=== PATIENT | female | born 1960 | race Caucasian/White ===

== ENCOUNTER 2024-12-14 03:53 | Emergency (ER) | payer MEDICAID ==
[~2024-12-14] VITALS: Ht 152.4 cm; Wt 77.0 kg
[2024-12-14 04:25] LABS: BASOPHILS % (AUTO) 0.6 % (0-1); EOSINOPHILS % (AUTO) 0.2 % (0-6); HEMATOCRIT 38.5 % (35.0-45.0); HEMOGLOBIN 13.3 g/dl (12.0-16.0); LYMPHOCYTES # (AUTO) 1.7 X10'3 (1.1-4.8); LYMPHOCYTES % (AUTO) 25.2 % (21-51); MEAN CORPUSCULAR HEMOGLOBIN 35.7 PG (27.0-31.0); MEAN CORPUSCULAR HGB CONC 34.6 g/dL (33.0-36.5); MEAN CORPUSCULAR VOLUME 103.3 FL (78-98); MEAN PLATELET VOLUME 8.7 FL (7.4-10.4); MONOCYTES # (AUTO) 0.7 X10'3 (0-0.9); MONOCYTES % (AUTO) 11.3 % (2-12); NEUTROPHILS # (AUTO) 4.1 X10'3 (1.8-7.7); NEUTROPHILS % (AUTO) 62.7 % (42-75); PLATELET COUNT 208 X10'3 (140-440); RED BLOOD COUNT 3.73 X10'6 (4.20-5.60); RED CELL DISTRIBUTION WIDTH 18.5 % (11.5-14.5); WHITE BLOOD COUNT 6.6 X10'3 (4.5-11.0)
[2024-12-14 04:41] LABS: ALANINE AMINOTRANSFERASE 122 U/L (12-78); ALBUMIN 1.8 G/DL (3.4-5.0); ALBUMIN/GLOBULIN RATIO 0.3 (1.1-1.5); ALKALINE PHOSPHATASE 322 IU/L (46-116); ANION GAP 9 (8-16); ASPARTATE AMINO TRANSFERASE 548 U/L (10-37); BILIRUBIN,TOTAL 1.9 MG/DL (0.1-1.0); BLOOD UREA NITROGEN 15 MG/DL (7-18); BUN/CREATININE RATIO 21.4 (10.0-20.0); CALCIUM 7.2 MG/DL (8.5-10.1); CHLORIDE 103 MMOL/L (99-107); GLUCOSE 108 MG/DL (70-104); SODIUM 134 MMOL/L (135-145); TOTAL CARBON DIOXIDE 21.8 MMOL/L (24-32); TOTAL PROTEIN 7.1 G/DL (6.4-8.2); eCRCL 59 ML/MIN; eGFR 85 ML/MIN
[2024-12-14 04:49] LABS: POTASSIUM 4.3 MMOL/L (3.5-5.1)
[2024-12-14 05:45] LABS: INR 1.2 INR; PROTHROMBIN TIME 12.4 SECONDS (9.0-12.0)
[2024-12-14 05:56] VITALS: TEMP 98
[2024-12-14 09:06] LABS: AMYLASE,BODY FLUID 33 U/L; GLUCOSE,BODY FLUID 116 MG/DL; LDH,BODY FLUID 44 U/L
[2024-12-14 09:19] LABS: TOTAL PROTEIN,BODY FLUID < 2.0 G/DL
[2024-12-14 09:32] LABS: BFAPPEAR CLEAR; BFCOLOR STRAW; BFSOURCE PERITONEAL FLD; BFVOLUME 17 ML
[2024-12-14 09:36] LABS: EOSINOPHILS,BODY FLUID 0 %; NEUTROPHILS,BODY FLUID 3 %
[2024-12-14 09:37] LABS: BF MESOTHELIAL CELLS OCCASIONAL; LYMPHOCYTES,BODY FLUID 85 %; MONOCYTES,BODY FLUID 12 %
[2024-12-14 09:39] LABS: BF RBC COUNT 53 /CU MM; BF WBC COUNT 22 /CU MM (0-1000)
[2024-12-14] MEDS: ondansetron/PF 4mg/2ml inj IV ONE (09:48)
[2024-12-14 10:10] VITALS: BP 114/69; PULSE 76; RESP 17; O2SAT 92
== END 2024-12-14 10:22 | disposition home or self-care (01) ==
LOC: ER 03:54
DX: R18.8 Other ascites (principal); Z88.5 Allergy status to narcotic agent
CPT/HCPCS: 36415; 49083; 80053; 82150; 82945; 83615; 84157; 85025; 85610; 87070; 87075; 89051; 96374; 99285; J2405